=== PATIENT | female | born 1960 | race Caucasian/White ===

== ENCOUNTER → 2017-03-15 | Outpatient (CLI) | payer OTHER | LOC: BMCIMAGING 14:05 | PROVIDERS: ATTEND Nurse Practitioner Adult Health | DX: Z12.31 Encounter for screening mammogram for malignant neoplasm of breast (principal); Z13.820 Encounter for screening for osteoporosis; M81.0 Age-related osteoporosis without current pathological fracture | CPT/HCPCS: G0202 ==

== ENCOUNTER 2018-09-28 10:42 | Emergency (ER) | payer OTHER ==
[2018-09-28] MEDS ORDERED: OXYCODONE/APAP 5/325 TAB PO ONE (11:40)
[2018-09-28] MEDS ORDERED: OXYCODONE/APAP 5/325 TAB ONE (11:40)
--- NOTE | 2018-09-28 11:52 | EDPHY ---
H & P Stated Complaint: right ankle injury Time Seen by Provider: 09/28/18 11:08 HPI/ROS: CHIEF COMPLAINT: Right ankle injury HISTORY OF PRESENT ILLNESS: 58-year-old female arrives via private vehicle complaining of acute right ankle pain which he slipped on the ice and rolled her foot this ankle. Unable to bear weight. REVIEW OF SYSTEMS: 10 systems reviewed and negative with the exception of the elements mentioned in the history of present illness PAST MEDICAL/SURGICAL HISTORY: no anticoagulant use, no relevant medical/ surgical history SOCIAL HISTORY: denies alcohol use at time of incident PHYSICAL EXAM 1) GENERAL: Well-developed, well-nourished, alert and oriented. Appears to be in no acute distress. Answering questions appropriately. 2) HEAD: Normocephalic, atraumatic 3) HEENT: Pupils equal, round, reactive to light bilaterally. Negative Horners. Nasopharynx, oropharynx, clear. No deformity or angulation of nose. No septal hematoma. No rhinorrhea. No oral trauma.. 4) NECK: Posterior cervical spine is nontender, no stepoff, no effusion. Full range of motion which does not elicit any midline cervical spine pain, no posterior midline tenderness, no step-off. 5) LUNGS: Clear to auscultation bilaterally, no wheezes, no rhonchi, no retractions. No obvious signs of trauma. No chest wall pain. No flaring, no grunting. Moving symmetrically. No crepitus. 6) HEART: [Regular rate and rhythm, 7) ABDOMEN: No guarding, no rebound, no focal tenderness, no peritoneal signs, no signs of trauma, no ecchymosis 8) MUSCULOSKELETAL: Right lower extremity: Tender to palpation with soft tissue swelling to the ankle. Intact skin. No puncture wound. DP PT pulses present and brisk. Proximal tibia and fibula nontender. Soft compartments. Otherwise, Moving all extremities, no focal areas of tenderness, no obvious trauma. 9) BACK: No midline vertebral tenderness, no fluctuance, no step-off, no obvious trauma, no visual or palpable abnormality. 10) SKIN: No laceration. No abrasion DIFFERENTIAL DIAGNOSIS: In no particular order including but not limited to fracture, sprain, strain, dislocation, compartment syndrome - Personal History Current Tetanus/Diphtheria Vaccine: Yes Current Tetanus Diphtheria and Acellular Pertussis (TDAP): Yes - Medical/Surgical History Hx Asthma: No Hx Chronic Respiratory Disease: No Hx Diabetes: No Hx Cardiac Disease: No Hx Renal Disease: No Hx Cirrhosis: No Hx Alcoholism: No Hx HIV/AIDS: No Hx Splenectomy or Spleen Trauma: No Other PMH: hypothyroid, hysterectomy - Social History Smoking Status: Never smoked Constitutional: Initial Vital Signs Temperature (C) 36.7 C 09/28/18 10:45 Heart Rate 63 09/28/18 10:45 Respiratory Rate 16 09/28/18 10:45 Blood Pressure 129/74 H 09/28/18 10:45 O2 Sat (%) 97 09/28/18 10:45 O2 Delivery Mode Room Air Allergies/Adverse Reactions: No Known Allergies Allergy (Unverified 09/28/18 10:50) Home Medications: Medication Instructions Recorded Synthroid 09/28/18 oxyCODONE/APAP 5/325 [Percocet 1 tab PO Q6 #15 tab 09/28/18 5/325] Medical Decision Making - Diagnostics Imaging Results: Imaging Impressions Ankle X-Ray 09/28/18 10:53 Impression: Acute displaced trimalleolar fracture with unstable hindfoot. Tibia/Fibula X-Ray 09/28/18 11:18 Impression: Acute, severely comminuted trimalleolar fracture with mortise disruption. Procedures: Procedure: Dislocation reduction. . The dislocation of the right ankle was reduced using traction and counter traction technique without complications. Post reduction the patient's neurovascular exam is normal. Post reduction x-ray demonstrates reduction of the joint to a more anatomic position. The procedure was performed by myself. Procedure: Splint A 3 way Ortho Glass splint was applied by ER film laboratory technician. After application of the splint I returned and re-examined the patient. The splint was adequately immobilizing the joint and distal to the splint the patient's circulation and sensation were intact. Patient shows no signs of compartment syndrome. Was given orthopedic precautions. Procedure: Crutches indications for crutch use discussed with patient. Patient fitted for crutches by ER staff. Observed ambulating with crutches. I think the patient has the capacity to safely use crutches. Usual and customary crutch walking precautions provided ED Course/Re-evaluation: 1207 pm: Orthopedics request CT ankle 2:00 p.m.: CT imaging completed. Images have been reviewed by Dr. Quezada who requests that we reduce her and resplint her as she remains posteriorly and laterally dislocated. Dr Quezada has arranged follwooup with Dr Briceno. Dr. Saqib Briceno would like to see the patient in the office this afternoon. 2:20 p.m.: Patient's ankle is been reduced, will obtain post reduction x-rays and patient will plan on seeing Dr. Saqib Briceno later this afternoon. - Data Points Medications Given: Discontinued Medications Oxycodone/Acetaminophen (Percocet 5/325) 1 tab PO EDNOW ONE Stop: 09/28/18 11:41 Last Admin: 09/28/18 11:42 Dose: 1 tab Departure - Departure Disposition: Home, Routine, Self-Care Clinical Impression: Trimalleolar fracture of ankle, closed, Fall from slipping on ice Condition: Good Instructions: Ankle Fracture (ED) Additional Instructions: Return to the ER immediately if you experience discoloration, have worsening pain, numbness, tingling, or any other symptoms that concern you. If you received x-rays in the emergency department today, be advised, that ligamentous , tendon, muscular, and other non-bony injury cannot be fully ruled out. Try to keep your affected extremity elevated above the level of your chest, and keep cold packs on the affected area, for the next 48 hours. Referrals: Saqib Briceno MD [Medical Doctor] - 09/28/18 3:00 pm Prescriptions: oxyCODONE/APAP 5/325 [Percocet 5/325] 1 tab PO Q6 #15 tab
[2018-09-28] MEDS ORDERED: fentaNYL 100 MCG/2 ML INJ NASAL ONE (14:16)
[2018-09-28 14:58] VITALS: BP 127/65
== END 2018-09-28 14:58 | disposition home or self-care (01) ==
PROC: 0QSGXZZ Reposition Right Tibia, External Approach (ICD-10-PCS; principal; 2018-09-28)
DX: S82.851A Displaced trimalleolar fracture of right lower leg, initial encounter for closed fracture (principal); W00.0XXA Fall on same level due to ice and snow, initial encounter; Y92.480 Sidewalk as the place of occurrence of the external cause
CPT/HCPCS: J3010